=== PATIENT | male | born 1985 | race Caucasian/White ===

== ENCOUNTER 2022-08-04 12:55 | Emergency (ER) | payer BC, OTHER ==
[~2022-08-04] VITALS: Ht 188 cm; Wt 88.5 kg
[2022-08-04] MEDS ORDERED: TETRACAINE HCL 0.5% OPHT DROP 2 ML BOTTLE OP ONE (13:30)
[2022-08-04] MEDS ORDERED: FLUORESCEIN SODIUM 1 MG STRIP OP ONE (13:30)
[2022-08-04] MEDS ORDERED: TETRACAINE HCL 0.5% OPHT DROP 2 ML BOTTLE ONE (13:31)
[2022-08-04] MEDS ORDERED: FLUORESCEIN SODIUM 1 MG STRIP ONE (13:31)
[2022-08-04] MEDS ORDERED: AMOX-430 PO (16:32)
--- NOTE | 2022-08-04 16:44 | NUR ---
Patient discharged to home in stable condition. Written and verbal after care instructions given. Patient verbalizes understanding of instructions. Stressed follow up or return to ER for worsening s/s.
== END 2022-08-04 16:45 | disposition home or self-care (01) ==
LOC: ER 12:55
DX: S05.92XA Unspecified injury of left eye and orbit, initial encounter (principal); S02.85XA Fracture of orbit, unspecified, initial encounter for closed fracture; S02.2XXA Fracture of nasal bones, initial encounter for closed fracture; W01.198A Fall on same level from slipping, tripping and stumbling with subsequent striking against other object, initial encounter; Y92.030 Kitchen in apartment as the place of occurrence of the external cause; F11.10 Opioid abuse, uncomplicated
CPT/HCPCS: 70480; A4663